=== PATIENT | male | born 1955 | race Caucasian/White ===

== ENCOUNTER 2017-03-31 03:53 | Emergency (ER) | payer OTHER ==
[2017-03-31] MEDS ORDERED: NS 1,000 ML IV ONE (04:18)
[2017-03-31] MEDS ORDERED: ONDANSETRON 4 MG/2 ML VIAL IVP ONE (04:18)
[2017-03-31 04:39] LABS: PLATELET COUNT 319 10^3/uL (150-400)
--- NOTE | 2017-03-31 04:48 | EDPHY ---
H & P Stated Complaint: fall d/t dizziness , head lac, N/V Time Seen by Provider: 03/31/17 04:02 HPI/ROS: HPI The patient presents with episode of ALOC with fall. The patient was drinking alcohol last night, went to bed at approximately 10:30 a.m.. He awoke at 2 o' clock in the morning and walked to the bathroom. He began to feel dizzy and walked back to bed. About 10 minutes later he got up again and attempted to go to the bathroom, however while in the bathroom he felt dizzy again and lost consciousness. He fell backwards and hit his head on the toilet. This was witnessed by his . He roused easily. He felt nauseated and did vomit. He continued to vomit 2 additional times in route from [place]. He has a prior history of syncope, though this seems to be related to anaphylaxis. He has not had any hives, shortness of breath, wheezing. He takes a baby aspirin daily. REVIEW OF SYSTEMS Constitutional: No fever, no chills. Eyes: No discharge. ENT: No sore throat. Cardiovascular: No chest pain, no palpitations. Respiratory: No cough, no shortness of breath. Gastrointestinal: No abdominal pain, no vomiting. Genitourinary: No hematuria. Musculoskeletal: No back pain. Skin: No rashes. Neurological: No headache. PMHx: Hypertension, asthma Soc Hx: Lives at home with his in [place], alcohol use PHYSICAL General Appearance: Alert, no distress Head: There is a left-sided scalp contusion in the occipital region Eyes: Pupils equal and round no pallor or injection ENT, Mouth: Mucous membranes moist Respiratory: There are no retractions, lungs are clear to auscultation Cardiovascular: Regular rate and rhythm Gastrointestinal: Abdomen is soft and non-tender, no masses, bowel sounds normal Neurological: A&O, moves all extremities Skin: Warm and dry, no rashes Musculoskeletal: Neck is supple non tender Extremities: symmetrical, full range of motion Psychiatric: Patient is oriented X 3, there is no agitation Source: Patient, Family Exam Limitations: No limitations - Personal History Current Tetanus/Diphtheria Vaccine: Unsure - Medical/Surgical History Hx Asthma: Yes Hx Chronic Respiratory Disease: No Hx Diabetes: No Hx Cardiac Disease: No Hx Renal Disease: No Hx Cirrhosis: No Hx Alcoholism: No Hx HIV/AIDS: No Hx Splenectomy or Spleen Trauma: No Other PMH: asthma, HTN, hypothyroid, - Social History Smoking Status: Never smoked Constitutional: Initial Vital Signs Temperature (C) 36.4 C 03/31/17 03:56 Heart Rate 100 03/31/17 03:56 Respiratory Rate 18 03/31/17 03:56 Blood Pressure 114/81 H 03/31/17 03:56 O2 Sat (%) 94 03/31/17 03:56 O2 Delivery Mode Room Air Allergies/Adverse Reactions: No Allergies [NKDA] Allergy (Verified 11/13/15 10:47) "DOGS AND CATS" Allergy (Uncoded 05/31/11 12:35) Home Medications: Medication Instructions Recorded Advair 1 puffs PO PRN PRN 06/07/10 LISINOPRIL 40 mg PO DAILY 06/07/10 Levothyroxine 75 mcg PO DAILY 05/31/11 Aspirin 81mg (OTC) 81 mg PO DAILY 11/13/15 Herbals/Supplements -Info Only PO DAILY 11/13/15 Medical Decision Making - Diagnostics EKG Interpretation: EKG: Complete interpretation has been separately recorded in the [facility] archive. Summary impression: Left anterior fascicular block, Q-waves in lead 2 Differential Diagnosis: 62-year-old man with hypertension presents with syncopal episode by history. Drinking alcohol the night before, felt dizzy just prior to the episode with nausea. He has vomited several times since. He did hit his head on the toilet and has a scalp contusion. He has not had any chest pain, shortness of breath, palpitations. Differential diagnosis includes vasovagal syncope, arrhythmia, hypoglycemia, less likely ACS. In the emergency department, labs were checked and did reveal leukocytosis and general hemoconcentration, likely related to stress response and dehydration. He was given 2 L of fluid and felt much better. He was able to tolerate fluids by mouth. He has not had any ongoing vomiting. He feels well enough to go home. We will update his tetanus vaccine. - Data Points Laboratory Results: Laboratory Results 03/31/17 04:20 03/31/17 04:20 03/31/17 03/31/17 03/31/17 05:34 04:20 04:20 WBC 16.88 10^3/uL H 10^3/uL (3.80-9.50) RBC 5.62 10^6/uL 10^6/uL (4.40-6.38) Hgb 18.8 g/dL H g/dL (13.7-17.5) Hct 50.8 % % (40.0-51.0) MCV 90.4 fL fL (81.5-99.8) MCH 33.5 pg pg (27.9-34.1) MCHC 37.0 g/dL H g/dL (32.4-36.7) RDW 12.5 % % (11.5-15.2) Plt Count 319 10^3/uL 10^3/uL (150-400) MPV 10.3 fL fL (8.7-11.7) Neut % (Auto) 80.1 % H % (39.3-74.2) Lymph % (Auto) 11.6 % L % (15.0-45.0) Eddy % (Auto) 6.4 % % (4.5-13.0) Eos % (Auto) 0.5 % L % (0.6-7.6) Baso % (Auto) 0.5 % % (0.3-1.7) Nucleat RBC Rel Count 0.0 % % (0.0-0.2) Absolute Neuts (auto) 13.51 10^3/uL H 10^3/uL (1.70-6.50) Absolute Lymphs (auto) 1.96 10^3/uL 10^3/uL (1.00-3.00) Absolute Monos (auto) 1.08 10^3/uL H 10^3/uL (0.30-0.80) Absolute Eos (auto) 0.09 10^3/uL 10^3/uL (0.03-0.40) Absolute Basos (auto) 0.09 10^3/uL 10^3/uL (0.02-0.10) Absolute Nucleated RBC 0.00 10^3/uL 10^3/uL (0-0.01) Immature Gran % 0.9 % % (0.0-1.1) Immature Gran # 0.15 10^3/uL H 10^3/uL (0.00-0.10) Sodium 142 mEq/L mEq/L (134-144) Potassium 4.2 mEq/L mEq/L (3.5-5.2) Chloride 96 mEq/L L mEq/L (97-110) Carbon Dioxide 28 mEq/l mEq/l (22-31) Anion Gap 18 mEq/L H mEq/L (8-16) BUN 16 mg/dL mg/dL (7-23) Creatinine 1.5 mg/dL H mg/dL (0.7-1.3) Estimated GFR 47 Glucose 131 mg/dL H mg/dL (70-100) Calcium 10.7 mg/dL H mg/dL (8.5-10.4) Phosphorus 2.5 mg/dL mg/dL (2.5-4.5) Total Bilirubin 0.5 mg/dL mg/dL (0.1-1.4) AST 35 IU/L IU/L (17-59) ALT 67 IU/L IU/L (21-72) Alkaline Phosphatase 61 IU/L IU/L (38-126) Troponin I < 0.012 ng/mL ng/mL (0.000-0.034) Total Protein 8.0 g/dL g/dL (6.3-8.2) Albumin 4.4 g/dL g/dL (3.5-5.0) Lipase 216 IU/L IU/L (23-300) Urine Color YELLOW Urine Appearance HAZY Urine pH 8.0 H (5.0-7.5) Ur Specific Fletcher 1.014 (1.002-1.030) Urine Protein 1+ H (NEGATIVE) Urine Ketones TRACE H (NEGATIVE) Urine Blood NEGATIVE (NEGATIVE) Urine Nitrate NEGATIVE (NEGATIVE) Urine Bilirubin NEGATIVE (NEGATIVE) Urine Urobilinogen NEGATIVE EU EU (0.2-1.0) Ur Leukocyte Esterase TRACE H (NEGATIVE) Urine RBC 1-3 /hpf /hpf (0-3) Urine WBC 10-15 /hpf H /hpf (0-3) Ur Epithelial Cells NONE SEEN /lpf /lpf (NONE-1+) Hyaline Casts 15-25 /lpf H /lpf (0-1) Urine Mucus TRACE /lpf /lpf (NONE-1+) Urine Glucose NEGATIVE (NEGATIVE) Medications Given: Discontinued Medications Diphtheria/Tetanus/Acell Pertussis (Boostrix) 0.5 ml IM .ONCE ONE Stop: 10/30/17 05:42 Last Admin: 03/31/17 06:03 Dose: 0.5 ml Sodium Chloride (Ns) 1,000 mls @ 0 mls/hr IV EDNOW ONE; Wide Open PRN Reason: Protocol Stop: 03/31/17 04:19 Last Admin: 03/31/17 04:42 Dose: 1,000 mls Ondansetron HCl (Zofran) 4 mg IVP EDNOW ONE Stop: 03/31/17 04:19 Last Admin: 03/31/17 04:44 Dose: 4 mg Departure - Departure Disposition: Home, Routine, Self-Care Clinical Impression: Dehydration Syncope Qualifiers: Syncope type: unspecified Qualified Code(s): R55 - Syncope and collapse Scalp contusion Qualifiers: Encounter type: initial encounter Qualified Code(s): S00.03XA - Contusion of scalp, initial encounter Condition: Good Instructions: Syncope (ED) Additional Instructions: Please make sure to drink plenty of fluids for the rest of the day. You should return if you are having any chest pain, dizziness, lightheadedness, or are worse in any way. Referrals: Alexandro Self MD [Primary Care Provider] - As per Instructions
--- NOTE | 2017-03-31 04:58 | CPEKG ---
Heart Rate: 93 RR Interval: 645 P-R Interval: 200 QRSD Interval: 86 QT Interval: 332 QTC Interval: 413 P [place]: 48 QRS [place]: -51 T Wave [place]: 15 EKG Severity - ABNORMAL ECG - EKG Impression: SINUS RHYTHM EKG Impression: LEFT ANTERIOR FASCICULAR BLOCK EKG Impression: ANTERIOR INFARCT, AGE INDETERMINATE Electronically Signed By: Lucy Fitzpatrick 31-Mar-2017 07:01:10
[2017-03-31] MEDS ORDERED: TDAP ADULT 0.5 ML INJ (BOOSTRIX) IM ONE (05:41)
[2017-03-31 06:31] VITALS: BP 125/83; PULSE 105; RESP 16; TEMP 98.2; O2SAT 96
== END 2017-03-31 06:29 | disposition home or self-care (01) ==
PROC: 3E0337Z Introduction of Electrolytic and Water Balance Substance into Peripheral Vein, Percutaneous Approach (ICD-10-PCS; principal; 2017-03-31)
DX: S00.03XA Contusion of scalp, initial encounter (principal); R55 Syncope and collapse; E86.0 Dehydration; I10 Essential (primary) hypertension; J45.909 Unspecified asthma, uncomplicated; Z23 Encounter for immunization; Z79.82 Long term (current) use of aspirin; W01.198A Fall on same level from slipping, tripping and stumbling with subsequent striking against other object, initial encounter; Y92.89 Other specified places as the place of occurrence of the external cause; Y99.8 Other external cause status; Y93.89 Activity, other specified
CPT/HCPCS: 96374; J2405